=== PATIENT | female | born 1990 | race American Indian/Alaskan Native ===

== ENCOUNTER 2016-03-22 10:31 | Inpatient (IN) | payer MEDICAID ==
--- NOTE | 2016-03-22 12:09 | History and Physical Report ---
History of Present Illness Date of examination: 03/22/16 Date of admission: 03/22/16 10:31 Chief complaint: Labor History of present illness: Pt is a 25yo BF EDC 03/23/16; EGA 39 6/7 weeks presents to L&D from the office where she was 5cm dilated. She received care at [facility] since 9 weeks and course has been unremarkable. records are available, but GBS is unknown. Past History Past Medical History: no pertinent history Past Surgical History: no surgical history Family/Genetic History: none Social history: no significant social history, single - Obstetrical History Expected Date of Delivery: 03/23/16 Actual Gestation: 39 Week(s) 6 Day(s) : 3 Medications and Allergies Allergies Allergy/AdvReac Type Severity Reaction Status Date / Time ondansetron HCl Allergy Unknown Verified 02/17/16 19:52 [From Zofran (as hydrochloride)] Home Medications Medication Instructions Recorded Confirmed Last Taken Type Tablet 1 tab PO DAILY 03/22/16 03/22/16 03/20/16 09:00 History 1 Review of Systems All systems: negative - Vital Signs Vital signs: Vital Signs Temp Pulse Resp BP Pulse Ox 98.3 F 76 18 112/75 99 03/22/16 10:50 03/22/16 10:50 03/22/16 10:50 03/22/16 10:50 03/22/16 10:50 Temp Pulse Resp BP Pulse Ox 98.3 F 79 18 111/72 99 03/22/16 10:50 03/22/16 12:06 03/22/16 10:50 03/22/16 12:04 03/22/16 12:06 - Physical Exam Breasts: Positive: deferred Cardiovascular: Regular rate Lungs: Positive: Clear to auscultation Abdomen: Positive: normal appearance, soft Genitourinary (Female): Positive: normal external genitalia Uterus: Positive: enlarged Extremities: Positive: normal - Obstetrical FHR: category 1 Uterine Contraction Monitor Mode: External Cervical Dilatation: 5 Cervical Effacement Percentage: 70 station: -2 Uterine Contraction Pattern: Irregular Uterine Tone Measurement Phase: Contraction Uterine Contraction Intensity: Mild Results All other labs normal. Assessment and Plan - Patient Problems (1) Active labor at term Diagnosis Date: 03/22/16 Current Visit: Yes Status: Acute Plan to address problem: A: IUP @ 39 6/7 weeks in early labor Unknown GBS P: Admit to L&D for expectant vaginal delivery IV Ampicillin
[2016-03-22] MEDS ORDERED: BRETHINE IVP PRN (12:10)
[2016-03-22] MEDS ORDERED: STADOL IV PRN (12:10)
[2016-03-22] MEDS ORDERED: ePHEDrine SULFATE IV PRN ×2 (12:10→16:45)
[2016-03-22] MEDS ORDERED: BRETHINE SUB-Q PRN (12:10)
[2016-03-22] MEDS ORDERED: NARCAN 0.4 MG/1 ML IV PRN (12:10)
[2016-03-22] MEDS ORDERED: MINERAL OIL PO PRN (12:10)
[2016-03-22] MEDS ORDERED: PHENERGAN PO PRN ×2 (12:10→20:43)
[2016-03-22] MEDS ORDERED: SUBLIMAZE IV PRN (12:10)
[2016-03-22] MEDS ORDERED: PITOCin/NS 20 UNIT/1000ML DRIP 1,000 ML IV SCH ×2 (13:00→21:00)
[2016-03-22] MEDS ORDERED: PITOCin/NS 30 UNIT/500ML 500 ML IV SCH (13:00)
[2016-03-22] MEDS ORDERED: POLYCILLIN/NS 2 GM/100 ML 100 ML IV ONE (13:29)
[2016-03-22] MEDS: LACTATED RINGERS 1,000 ML IV SCH ×2 (14:24→16:50)
[2016-03-22] MEDS: POLYCILLIN/NS 1 GM/50 ML 50 ML IV SCH ×2 (14:26→17:57)
[2016-03-22 14:59] LABS: Hematocrit 30.9 % (30.3-42.9); Hemoglobin 10.1 gm/dl (10.1-14.3); Mean Corpuscular HGB Conc 33 % (30-34); Mean Corpuscular Hemoglobin 28 pg (28-32); Mean Corpuscular Volume 87 fl (79-97); Platelet Count 225 K/mm3 (140-440); Red Blood Count 3.56 M/mm3 (3.65-5.03); Red Cell Distribution Width 12.9 % (13.2-15.2); White Blood Count 10.6 K/mm3 (4.5-11.0)
[2016-03-22] MEDS: PITOCin/NS 30 UNIT/500ML 500 ML IV SCH ×3 (15:00→18:30)
[2016-03-22] MEDS ORDERED: NARCAN 2 MG/2 ML IV PRN (16:45)
--- NOTE | 2016-03-22 16:54 | Anesthesia Consultation ---
Anesthesia Consult and Med Hx Date of service: 03/22/16 - Airway Anesthetic Teeth Evaluation: Good ROM Head & Neck: Adequate Mental/Hyoid Distance: Adequate Mallampati Class: Class II Intubation Access Assessment: Probably Good - Pulmonary Exam CTA: Yes - Cardiac Exam Cardiac Exam: RRR - Pre-Operative Health Status ASA Pre-Surgery Classification: ASA2 Proposed Anesthetic Plan: Epidural - Pulmonary Hx Asthma: No COPD: No Hx Pneumonia: No - Cardiovascular System Hx Hypertension: No - Central Nervous System Hx Seizures: No Hx Psychiatric Problems: No - Endocrine Hx Renal Disease: No Hx End Stage Renal Disease: No Hx Hypothyroidism: No Hx Hyperthyroidism: No - Hematic Hx Anemia: No Hx Sickle Cell Disease: No - Other Systems Hx Alcohol Use: No
[2016-03-22] MEDS ORDERED: fentaNYL-BUPIV 2 MCG/ML-0.125% 100 ML EPIDURAL SCH (17:00)
[2016-03-22] MEDS ORDERED: BENADRYL PO PRN (20:43)
[2016-03-22] MEDS ORDERED: DERMOPLAST TP PRN (20:43)
[2016-03-22] MEDS ORDERED: LANSINOH TP PRN (20:43)
[2016-03-22] MEDS ORDERED: PHENERGAN PR PRN (20:43)
[2016-03-22] MEDS ORDERED: DULCOLAX PR PRN (20:43)
[2016-03-22] MEDS ORDERED: TYLENOL PO PRN (20:43)
[2016-03-22] MEDS ORDERED: MILK OF MAGNESIA PO PRN (20:43)
[2016-03-22] MEDS ORDERED: TUCKS PAD TP PRN (20:43)
--- NOTE | 2016-03-22 20:50 | Procedure Note ---
OB Delivery Note - Delivery Date of Delivery: 03/22/16 Surgeon: KARYN UGALDE Estimated blood loss: 200cc - Vaginal Delivery presentation: vertex Delivery position: OP Intrapartum events: none Delivery induction: none Delivery augmentation: pitocin Delivery monitor: external FHT, external uterine Route of delivery: Delivery placenta: spontaneous Delivery cord: 3 umbilical vessels Episiotomy: none Delivery laceration: none Anesthesia: epidural - Infant A at 1 minute: 8 at 5 minutes: 9 Gender: Female (3047gms)
[2016-03-22] MEDS ORDERED: SODIUM CHLORIDE FLUSH SYRINGE 10 ML IV NR (21:00)
[2016-03-22] MEDS: FEOSOL PO SCH (23:34)
[2016-03-22] MEDS: COLACE PO SCH (23:34)
[2016-03-22] MEDS: MOTRIN PO SCH (23:34)
[2016-03-22] MEDS: NORCO 5/325 PO PRN (23:35)
[2016-03-23] MEDS: MOTRIN PO SCH (05:11)
[2016-03-23] MEDS ORDERED: M-M-R II VACCINE SUB-Q ONE (06:00)
[2016-03-23] MEDS ORDERED: BOOSTRIX IM ONE (06:00)
--- NOTE | 2016-03-23 08:20 | Progress Note ---
Assessment and Plan PPD# 1 s/p -Doing well P: -Continue routine care -Anticipate discharge in 24-48 hours - Patient Problems (1) (normal spontaneous vaginal delivery) Current Visit: Yes Status: Acute Subjective - Subjective Date of service: 03/23/16 Principal diagnosis: PPD # 1 Interval history: Doing well, no issues Patient reports: appetite normal, voiding normally, pain well controlled, ambulating normally, no dizzy ambulation, no nauseated : doing well Objective - Vital Signs Latest vital signs: Vital Signs Temp Pulse Pulse Resp BP BP Pulse Ox 03/23/16 00:00 97.6 F 81 18 119/65 03/22/16 22:24 98.2 F 71 20 128/79 03/22/16 21:46 74 123/71 03/22/16 21:32 90 134/90 03/22/16 21:16 76 128/60 03/22/16 21:01 81 126/59 03/22/16 20:47 87 107/55 03/22/16 20:35 97.3 F L 18 03/22/16 20:32 88 119/58 03/22/16 20:24 73 98 03/22/16 20:19 74 100 03/22/16 20:17 73 123/69 03/22/16 20:14 76 100 03/22/16 20:09 91 H 96 03/22/16 20:04 82 98 03/22/16 19:59 83 100 03/22/16 19:54 115 H 100 03/22/16 19:50 102 H 94 03/22/16 19:49 88 99 03/22/16 19:47 77 131/79 03/22/16 19:44 75 98 03/22/16 19:39 87 99 03/22/16 19:34 84 97 03/22/16 19:31 99 H 112/68 03/22/16 19:29 87 100 03/22/16 19:24 98 H 99 03/22/16 19:19 87 100 03/22/16 19:17 75 113/70 03/22/16 19:14 88 100 03/22/16 19:09 88 99 03/22/16 19:04 85 99 03/22/16 19:02 73 116/74 03/22/16 18:59 80 99 01/17/17 18:54 71 100 17/17 18:49 75 100 17/17 18:46 81 106/67 17/17 18:44 76 100 17/17 18:39 76 100 17/17 18:34 79 100 17/17 18:32 70 112/71 1717 18:29 71 100 17/17 18:24 98 H 99 1717 18:19 90 99 1717 18:16 89 101/55 17 18:14 86 98 1717 18:09 85 99 17 18:08 89 0 L 17 18:04 90 100 17/17 18:01 85 123/64 1717 17:59 82 122/65 99 1717 17:57 82 120/63 1717 17:55 78 112/70 1717 17:54 83 99 1717 17:53 75 121/71 1717 17:52 18 121/71 17 17:51 81 119/70 1717 17:49 86 117/71 99 17/17 17:47 88 118/70 17/17 17:45 76 113/68 17/17 17:44 77 99 17/17 17:43 79 117/68 17/17 17:41 81 121/69 17/17 17:39 77 117/67 99 1717 17:37 78 118/65 17/17 17:35 78 115/64 17/17 17:34 77 99 17/17 17:33 77 113/62 17/17 17:31 75 105/59 17/17 17:29 87 103/59 99 17/17 17:27 81 114/61 17/17 17:25 80 106/52 17/17 17:24 77 100 17/17 17:23 86 114/54 17/17 17:19 89 105/59 99 17/17 17:17 76 108/63 17/17 17:15 80 111/64 17/17 17:14 78 100 17 17:13 93 H 113/65 17 17:11 76 118/75 17 17:09 76 121/78 100 17 17:07 87 119/75 17 17:05 85 120/70 03/22/17 17:04 84 99 17 17:03 83 116/72 1717 17:01 88 118/74 17 16:59 105 H 121/72 99 1717 16:57 86 119/70 17 16:55 96 H 128/77 17 16:54 94 H 100 17 16:53 80 119/70 17 16:49 87 137/66 96 17 16:44 79 100 17 16:39 82 100 17 16:35 77 117/59 17 16:34 78 95 17 16:28 82 99 17 16:23 78 99 17 16:20 86 138/93 17 16:18 83 99 17 16:13 152 H 84 17 16:08 91 H 100 17 16:05 76 123/74 17 16:03 77 99 17 15:58 79 99 17/17 15:53 81 99 17 15:50 94 H 134/87 1717 15:48 97 H 99 1717 15:43 84 100 1717 15:38 83 100 1717 15:35 90 116/73 03/22/17 15:33 84 100 17/17 15:28 87 99 17/17 15:23 80 100 1717 15:19 75 119/74 17 15:18 82 100 1717 15:13 86 92 1717 15:05 87 113/68 1717 15:03 86 99 1717 14:58 91 H 99 1717 14:53 92 H 99 1717 14:50 86 114/74 1717 14:48 96 H 99 03/22/16 14:43 87 99 03/22/16 14:38 77 99 03/22/16 14:35 81 117/71 03/22/16 14:33 82 99 03/22/16 14:28 78 98 03/22/16 14:23 80 98 03/22/16 14:19 87 117/68 03/22/16 14:18 90 98 03/22/16 14:13 85 99 03/22/16 14:08 89 98 03/22/16 14:04 80 120/64 03/22/16 14:03 87 99 03/22/16 13:58 83 98 03/22/16 13:53 81 99 03/22/16 13:50 97 H 117/76 03/22/16 13:48 74 99 03/22/16 13:43 75 100 03/22/16 13:19 96 H 117/73 03/22/16 13:11 78 100 03/22/16 13:06 74 100 03/22/16 13:05 80 118/75 03/22/16 13:01 86 100 03/22/16 12:56 97 H 99 03/22/16 12:51 80 99 03/22/16 12:49 81 109/80 03/22/16 12:46 83 100 03/22/16 12:41 75 100 03/22/16 12:36 83 100 03/22/16 12:34 79 105/76 03/22/16 12:31 74 100 03/22/16 12:27 74 100 03/22/16 12:21 85 99 03/22/16 12:19 83 113/75 03/22/16 12:16 80 99 03/22/16 12:11 75 98 03/22/16 12:06 79 99 03/22/16 12:04 86 111/72 03/22/16 12:01 89 98 03/22/16 11:56 77 98 03/22/16 11:51 91 H 97 03/22/16 11:50 83 115/67 03/22/16 11:46 80 98 03/22/16 11:42 78 98 03/22/16 11:36 79 99 03/22/16 11:35 83 117/71 03/22/16 11:31 83 98 03/22/16 11:26 84 98 03/22/16 11:21 86 98 03/22/16 11:19 82 105/67 03/22/16 11:17 82 97 03/22/16 11:11 82 97 03/22/16 11:06 84 98 03/22/16 11:04 78 105/64 03/22/16 11:02 77 97 03/22/16 10:56 86 98 03/22/16 10:51 77 99 03/22/16 10:50 98.3 F 72 76 18 112/75 112/75 99 Intake and Output 03/22/16 03/23/16 03/23/16 22:59 06:59 14:59 Intake Total 1700 125 Output Total 300 700 Balance 1400 -575 Intake: IV 1700 125 Lactated Ringers 1,000 ml 1500 @ 125 mls/hr IV DIRECT EDD Rx#:[id number] PITOCin/NS 20 UNIT/1000ML 125 125 DRIP 1,000 ML @ 125 mls/ hr IV DIRECT EDD Rx#: [id number] PITOCin/NS 30 UNIT/500ML 25 500 ML @ 1 MILLIUNITS/MIN 1 mls/hr IV TITR EDD Rx# :[id number] Polycillin/Ns 1 gm/50 ml 50 50 ml @ 100 mls/hr IV Q4HR EDD Rx#:[id number] Output: Urine 300 700 Void 100 700 Indwelling Catheter 200 Other: Total, Output Amount 200 700 Estimated Blood Loss 200 - Exam Abdomen: Present: normal appearance, soft. Absent: distention, tenderness, guarding, rigidity Extremities: Present: normal - Labs Labs: Abnormal lab results 03/22/16 Range/Units 13:53 RBC 3.56 L (3.65-5.03) M/mm3 RDW 12.9 L (13.2-15.2) %
--- NOTE | 2016-03-23 08:22 | Discharge Summary ---
Providers - Providers Date of Admission: 03/22/16 10:31 Date of discharge: 03/24/16 Attending physician: KARYN UGALDE Primary care physician: KARYN UGALDE Hospitalization Reason for admission: active labor Delivery: Episiotomy: none Laceration: none Other procedures: none complications: none Discharge diagnosis: IUP at term delivered baby: female Hospital course: Uncomplicated PP course Condition at discharge: Good Disposition: DISCHARGED TO HOME OR SELFCARE - Discharge Diagnoses (1) (normal spontaneous vaginal delivery) Status: Acute Plan - Provider Discharge Summary Activity: no sex for 6 weeks, no heavy lifting 4 weeks, no strenuous exercise Diet: routine Additional instructions: [] Smoking cessation referral if applicable(refer to patient education folder for contact #) [] Refer to [facility] Booklet Call your doctor immediately for: * Fever > 100.5 * Heavy vaginal bleeding ( >1 pad per hour) * Severe persistent headache * Shortness of breath * Reddened, hot, painful area to leg or breast * Drainage or odor from incision. * Keep incision clean and dry at all times and follow doctor's instructions regarding bathing/showering - Follow up plan Follow up: KARYN UGALDE MD [Primary Care Provider] - 6 Weeks
[2016-03-23 08:44] LABS: Hematocrit 25.2 % (30.3-42.9); Hemoglobin 8.3 gm/dl (10.1-14.3)
[2016-03-23] MEDS ORDERED: PRENATAL VITAMIN PO SCH (10:00)
[2016-03-23] MEDS: NORCO 5/325 PO PRN ×2 (10:08→22:16)
--- NOTE | 2016-03-23 10:10 | Progress Note ---
Subjective Date of service: 03/23/16 Principal diagnosis: PPD # 1 Interval history: 1st day after normal vaginal delivery. Patient is in the bed, relatively comfortable. Pain is mostly controlled with pain meds. Epidural catheter has been removed earlier. Ambulated normally. No residual neurological deficit. No anesthesia complications Objective - Constitutional Vitals: Vital Signs - 12hr 03/22/16 03/23/16 03/23/16 22:24 00:00 08:00 Temperature 98.2 F 97.6 F 98.2 F Pulse Rate [ 71 81 86 From Monitor] Respiratory 20 18 18 Rate Blood Pressure 128/79 119/65 103/63 [Left Arm] - Labs CBC & Chem 7: 03/23/16 08:31 Labs: Abnormal lab results 03/22/16 03/23/16 Range/Units 13:53 08:31 RBC 3.56 L (3.65-5.03) M/mm3 Hgb 8.3 L (10.1-14.3) gm/dl Hct 25.2 L (30.3-42.9) % RDW 12.9 L (13.2-15.2) %
[2016-03-23] MEDS: COLACE PO SCH ×2 (10:11→22:16)
[2016-03-23] MEDS: FEOSOL PO SCH ×2 (10:11→22:16)
[2016-03-24] MEDS: MOTRIN PO SCH ×2 (00:13→05:30)
[2016-03-24 09:06] VITALS: BP 108/66
== END 2016-03-24 10:45 | disposition home or self-care (01) | DRG 775 ==
LOC: LD 10:31 → OB 22:30
PROVIDERS: ADMIT Obstetrics & Gynecology; ATTEND Obstetrics & Gynecology
PROC: 3E0S3CZ (ICD-10-PCS; principal; 2016-03-22)
PROC: 00HU33Z Insertion of Infusion Device into Spinal Canal, Percutaneous Approach (ICD-10-PCS; principal; 2016-03-22)
PROC: 10E0XZZ Delivery of Products of Conception, External Approach (ICD-10-PCS; principal; 2016-03-22)
DX: O80 Encounter for full-term uncomplicated delivery (principal); Z3A.39 39 weeks gestation of pregnancy; Z37.0 Single live birth; Z88.8 Allergy status to other drugs, medicaments and biological substances
CPT/HCPCS: 36415; 85014; 85018; 85027; 86850; 86900; 86901; 90471; 90715; 99211; A6250; G0463; J0290; J2590; J7120

== ENCOUNTER 2017-07-11 17:50 | Emergency (ER) | payer OTHER, MEDICAID ==
[2017-07-11] MEDS ORDERED: MOTRIN PO ONE (19:31)
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
[2017-07-11 20:49] VITALS: BP 118/63
== END 2017-07-11 20:48 | disposition home or self-care (01) ==
LOC: ED 17:50
DX: S00.83XA Contusion of other part of head, initial encounter (principal); Z88.6 Allergy status to analgesic agent; V89.2XXA Person injured in unspecified motor-vehicle accident, traffic, initial encounter; Y93.89 Activity, other specified; Y92.89 Other specified places as the place of occurrence of the external cause; Y99.8 Other external cause status
CPT/HCPCS: 70486; 99283

== ENCOUNTER 2018-12-13 00:45 | Emergency (ER) | payer MEDICAID, OTHER ==
--- NOTE | 2018-12-13 01:19 | XRay Report ---
CHEST 1 VIEW INDICATION / CLINICAL INFORMATION: Chest Pain. COMPARISON: None available. FINDINGS: SUPPORT DEVICES: None. HEART / MEDIASTINUM: No significant abnormality. LUNGS / PLEURA: No significant pulmonary or pleural abnormality. No pneumothorax. ADDITIONAL FINDINGS: No significant additional findings. IMPRESSION: 1. No acute findings. Signer Name: Minerva Jalloh MD Signed: 12/13/2018 1:15 AM Workstation Name: [id number]
== END 2018-12-13 01:25 | disposition left against medical advice (07) ==
LOC: ED 00:45
DX: R07.82 Intercostal pain (principal); Z53.21 Procedure and treatment not carried out due to patient leaving prior to being seen by health care provider
CPT/HCPCS: 71045; 93005; 93010

== ENCOUNTER 2021-07-06 08:43 | Emergency (ER) | payer SELFPAY ==
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
[2021-07-06 10:54] VITALS: BP 130/82
== END 2021-07-06 10:53 | disposition home or self-care (01) ==
LOC: ED 08:43
DX: S60.222A Contusion of left hand, initial encounter (principal); Z88.5 Allergy status to narcotic agent; Z79.899 Other long term (current) drug therapy; Y04.8XXA Assault by other bodily force, initial encounter; Y93.89 Activity, other specified; Y92.89 Other specified places as the place of occurrence of the external cause; Y99.8 Other external cause status
CPT/HCPCS: 99283